=== PATIENT | female | born 1950 | race Caucasian/White ===

== ENCOUNTER 2021-06-05 12:47 | Inpatient (IN) ==
[2021-06-05] MEDS ORDERED: Naloxone 0.4 MG/ML INJ IVP PRN (15:07)
[2021-06-05] MEDS ORDERED: Acetaminophen 325 MG TABLET PO PRN (15:07)
[2021-06-05] MEDS ORDERED: Ondansetron 4 MG/2 ML VIAL IVP PRN (15:07)
[2021-06-05] MEDS ORDERED: Nitroglycerin 0.4 MG TAB.SUBL SL PRN (15:16)
[2021-06-05] MEDS ORDERED: *HR* Dextrose 50 % in Water (Syg) 50 ML SYRINGE IVP PRN (15:17)
[2021-06-05] MEDS ORDERED: D5% in Water 1,000 ML IVC PRN (15:17)
[2021-06-05] MEDS ORDERED: Dextrose Gel 15 GM/37.5 ML TUBE PO PRN ×2 (15:17)
[2021-06-05] MEDS: Ipratropium 1 PUFF INHALER IH SCH ×3 (15:45→23:52)
[2021-06-05] MEDS ORDERED: levoFLOXacin 750 MG/150 ML 750 MG/150 ML BAG IVPB SCH (16:00)
[2021-06-05] MEDS ORDERED: Ipratropium/Albuterol Neb 3 ML IH SCH (16:00)
[2021-06-05] MEDS: levoFLOXacin 750 MG/150 ML 750 MG/150 ML BAG IVPB SCH (16:05)
[2021-06-05 16:06] LABS: Alanine Aminotransferase 29 Units/L (7-52); Albumin 3.4 g/dL (3.5-5.7); Albumin/Globulin Ratio 1.2 (1.1-2.2); Alkaline Phosphatase 67 Units/L (34-104); Aspartate Amino Transferase 31 Units/L (13-39); BUN/Creatinine Ratio 36 (6-26); Bilirubin,Total 0.7 mg/dL (0.3-1.0); Blood Urea Nitrogen 30 mg/dL (8-23); Calcium 8.5 mg/dL (8.6-10.3); Carbon Dioxide 21 mEq/L (23-29); Chloride 104 mEq/L (98-107); Globulin 2.9 g/dL (2.4-3.5); Glucose 267 mg/dL (70-105); Osmolality,Calculated 302 (280-300); Potassium 3.1 mEq/L (3.5-5.1); Sodium 138 mEq/L (136-145); Total Protein 6.3 g/dL (6.4-8.9); eGFR For African Americans > 60 (> 60); eGFR For Non-African Americans > 60 (> 60)
[2021-06-05 16:50] LABS: Basophils % 0.3 %; Hemoglobin 13.4 g/dL (11.5-15.4); Immature Granulocytes % 0.5 % (0-4); Lymphocytes # 0.4 K/mcL (0.6-4.6); Lymphocytes % 7.6 %; Mean Corpuscular HGB Conc 34.4 g/dL (31.6-35.5); Mean Corpuscular Hemoglobin 30.4 pg (28.0-33.3); Mean Corpuscular Volume 88.4 fL (83.0-100.0); Mean Platelet Volume 11.2 fL (9.4-12.4); Monocytes # 0.3 K/mcL (0.0-1.3); Monocytes % 4.3 %; Neutrophils # 5.1 K/mcL (1.6-8.9); Platelet Count 236 K/mcL (140-400); Red Blood Count 4.41 M/mcL (3.82-4.97); Red Cell Distribution Width 12.9 % (11.5-14.5); Segmented Neutrophils % 87.3 %; White Blood Count 5.8 K/mcL (4.3-11.1)
[2021-06-05] MEDS ORDERED: Isovue-370 500 ML BOTTLE IVP ONE (16:57)
[2021-06-05] MEDS: Cranberry 500 MG Capsule PO SCH (18:05)
[2021-06-05] MEDS: Insulin LISPRO 300 UNITS/3 ML VIAL SUBQ SCH (18:06)
[2021-06-05 19:58] LABS: Adenovirus Not Detected (Not Detect); Bordetella Pertussis Not Detected (Not Detect); Chlamydophila pneumoniae Not Detected (Not Detect); Coronavirus 229E Not Detected (Not Detect); Coronavirus HKU1 Not Detected (Not Detect); Coronavirus NL63 Not Detected (Not Detect); Coronavirus OC43 Not Detected (Not Detect); Human Metapneumovirus Not Detected (Not Detect); Human Rhinovirus/Enterovirus Not Detected (Not Detect); Influenza A Subtype 2009 H1 Not Detected (Not Detect); Influenza B Not Detected (Not Detect); Mycoplasma pneumoniae Not Detected (Not Detect); Parainfluenza Virus 1 Not Detected (Not Detect); Parainfluenza Virus 2 Not Detected (Not Detect); Parainfluenza Virus 3 Not Detected (Not Detect); Parainfluenza Virus 4 Not Detected (Not Detect); Respiratory Syncytial Virus Not Detected (Not Detect)
[2021-06-05 20:02] LABS: SARS-CoV-2 DETECTED (Not Detect)
[2021-06-05] MEDS ORDERED: Insulin LISPRO 300 UNITS/3 ML VIAL SUBQ SCH (21:00)
[2021-06-05 21:33] LABS: C-Reactive Protein 36 mg/L (Less than 10); Ferritin 478 ng/mL (10-120)
[2021-06-05] MEDS: Apixaban 5 MG TABLET PO SCH (22:18)
[2021-06-05] MEDS: Insulin DETEMIR 100 UNIT/ML X5UNITS SUBQ SCH (22:19)
[2021-06-06 03:30] LABS: Hematocrit 39.9 % (35.3-44.9); Hemoglobin 13.6 g/dL (11.5-15.4); Mean Corpuscular HGB Conc 34.1 g/dL (31.6-35.5); Mean Corpuscular Hemoglobin 30.4 pg (28.0-33.3); Mean Corpuscular Volume 89.3 fL (83.0-100.0); Mean Platelet Volume 10.9 fL (9.4-12.4); Platelet Count 244 K/mcL (140-400); Red Blood Count 4.47 M/mcL (3.82-4.97); Red Cell Distribution Width 12.9 % (11.5-14.5); White Blood Count 5.6 K/mcL (4.3-11.1)
[2021-06-06 03:46] LABS: Alanine Aminotransferase 37 Units/L (7-52); Albumin 3.4 g/dL (3.5-5.7); Albumin/Globulin Ratio 1.2 (1.1-2.2); Alkaline Phosphatase 71 Units/L (34-104); Aspartate Amino Transferase 47 Units/L (13-39); BUN/Creatinine Ratio 35 (6-26); Bilirubin,Total 0.7 mg/dL (0.3-1.0); Blood Urea Nitrogen 35 mg/dL (8-23); Calcium 8.7 mg/dL (8.6-10.3); Carbon Dioxide 23 mEq/L (23-29); Chloride 102 mEq/L (98-107); Glucose 179 mg/dL (70-105); Osmolality,Calculated 296 (280-300); Potassium 3.6 mEq/L (3.5-5.1); Sodium 137 mEq/L (136-145); Total Protein 6.2 g/dL (6.4-8.9); eGFR For African Americans > 60 (> 60); eGFR For Non-African Americans 54 (> 60)
[2021-06-06 03:47] LABS: Globulin 2.8 g/dL (2.4-3.5)
[2021-06-06 03:59] LABS: Albumin 3.4 g/dL (3.5-5.7); Albumin/Globulin Ratio 1.2 (1.1-2.2); Bilirubin,Direct 0.2 mg/dL (0.0-0.2); Bilirubin,Indirect 0.5 mg/dL (0.0-1.0); Bilirubin,Total 0.7 mg/dL (0.3-1.0); Globulin 2.8 g/dL (2.4-3.5); Total Protein 6.2 g/dL (6.4-8.9)
[2021-06-06] MEDS: Ipratropium 1 PUFF INHALER IH SCH ×3 (04:09→11:17)
[2021-06-06] MEDS: Apixaban 5 MG TABLET PO SCH (08:35)
[2021-06-06] MEDS: levoFLOXacin 750 MG/150 ML 750 MG/150 ML BAG IVPB SCH (08:36)
[2021-06-06] MEDS: Cranberry 500 MG Capsule PO SCH ×2 (08:45→13:53)
[2021-06-06] MEDS: Insulin LISPRO 300 UNITS/3 ML VIAL SUBQ SCH ×2 (08:46→12:26)
[2021-06-06] MEDS: Insulin DETEMIR 100 UNIT/ML X5UNITS SUBQ SCH (08:47)
[2021-06-06] MEDS ORDERED: Remdesivir 200 MG in 0.9 % Sodium Chloride 100 ML IVPB ONE (09:00)
[2021-06-06] MEDS ORDERED: Aspirin Enteric Coated 81 MG Tablet PO SCH (09:00)
[2021-06-06] MEDS ORDERED: Multivit/Ca/Min/Fe/FA 1 TAB TABLET PO SCH (09:00)
[2021-06-06] MEDS ORDERED: Dexamethasone Sodium Phos/PF 10 MG/ML VIAL IVP SCH (09:00)
[2021-06-06] MEDS ORDERED: Furosemide 40 MG/4 ML VIAL IVP ONE (11:59)
[2021-06-06 12:13] LABS: VBG HCO3 21 mEq/L (21-27); VBG PCO2 35 mmHg (41-51); VBG PH 7.38 pH Units (7.32-7.42); VBG PO2 51 mmHg (25-50)
[2021-06-06 13:35] VITALS: RESP 22; TEMP 99
[2021-06-06 14:06] VITALS: O2SAT 95
[2021-06-06 14:17] VITALS: BP 120/80; PULSE 110
[2021-06-07] MEDS ORDERED: Remdesivir 100 MG in 0.9 % Sodium Chloride 100 ML IVPB SCH (09:00)
== END 2021-06-06 14:49 | disposition short-term general hospital (02) | DRG 871 ==
LOC: INPGRE
PROVIDERS: ADMIT Family Medicine; ATTEND Family Medicine

== ENCOUNTER 2022-01-15 14:49 | Observation (INO) ==
[2022-01-15] MEDS ORDERED: Naloxone 0.4 MG/ML INJ IVP PRN (18:04)
[2022-01-15] MEDS ORDERED: Acetaminophen 325 MG TABLET PO PRN (18:04)
[2022-01-15] MEDS ORDERED: Ondansetron 4 MG/2 ML VIAL IVP PRN (18:04)
[2022-01-15] MEDS ORDERED: Nitroglycerin 0.4 MG TAB.SUBL SL PRN (21:56)
[2022-01-15] MEDS ORDERED: Dextrose Gel 15 GM/37.5 ML TUBE PO PRN ×4 (21:57→21:58)
[2022-01-15] MEDS ORDERED: D5% in Water 1,000 ML IVC PRN ×2 (21:57→21:58)
[2022-01-15] MEDS ORDERED: *HR* Dextrose 50 % in Water (Syg) 50 ML SYRINGE IVP PRN ×2 (21:57→21:58)
[2022-01-15] MEDS ORDERED: Aspirin Enteric Coated 81 MG Tablet PO SCH (22:15)
[2022-01-15] MEDS: Psyllium 1 PACKET POWD.PACK PO SCH (23:03)
[2022-01-16 04:14] LABS: Hematocrit 32.8 % (35.3-44.9); Mean Corpuscular HGB Conc 33.5 g/dL (31.6-35.5); Mean Corpuscular Hemoglobin 30.8 pg (28.0-33.3); Mean Corpuscular Volume 91.9 fL (83.0-100.0); Platelet Count 182 K/mcL (140-400); Red Blood Count 3.57 M/mcL (3.82-4.97); Red Cell Distribution Width 13.7 % (11.5-14.5); White Blood Count 5.7 K/mcL (4.3-11.1)
[2022-01-16 04:20] LABS: INR 2.1; Prothrombin Time 23.6 Seconds (9.4-12.1)
[2022-01-16 04:31] LABS: BUN/Creatinine Ratio 22 (6-26); Blood Urea Nitrogen 19 mg/dL (8-23); Calcium 9.5 mg/dL (8.6-10.3); Carbon Dioxide 24 mEq/L (23-29); Chloride 107 mEq/L (98-107); Chol/HDL Ratio 2.6 (0-4.9); Cholesterol 115 mg/dL (< 200); Glucose 90 mg/dL (70-105); HDL Cholesterol 45 mg/dL (40-59); LDL Cholesterol,Calculated 53 mg/dL (< 100); Magnesium 1.4 mg/dL (1.6-2.6); Osmolality,Calculated 292 (280-300); Potassium 3.1 mEq/L (3.5-5.1); Sodium 140 mEq/L (136-145); Triglycerides 84 mg/dL (< 150); eGFR For African Americans > 60 (> 60); eGFR For Non-African Americans > 60 (> 60)
[2022-01-16 07:55] VITALS: BP 154/88; PULSE 65; RESP 17; TEMP 98.6; O2SAT 95
[2022-01-16] MEDS ORDERED: Loratadine 10 MG TABLET PO SCH (09:00)
[2022-01-16] MEDS ORDERED: (Cranberry 500 MG Capsule) PO SCH (09:00)
[2022-01-16] MEDS ORDERED: Cholecalciferol (D-3) 1,000 UNIT (25MCG) TABLET PO SCH (09:00)
[2022-01-16] MEDS ORDERED: Insulin DETEMIR 100 UNIT/ML X5UNITS SUBQ SCH (09:00)
[2022-01-16] MEDS ORDERED: Psyllium 1 PACKET POWD.PACK PO SCH (09:00)
[2022-01-16] MEDS ORDERED: Vitamin E 200 UNIT (90MG) CAPSULE PO SCH (09:00)
[2022-01-16 09:51] LABS: Estimated Average Glucose 120 mg/dl; Hemoglobin A1C 5.8 %
[2022-01-16] MEDS: Insulin LISPRO 300 UNITS/3 ML VIAL SUBQ SCH ×2 (10:38→13:48)
[2022-01-16] MEDS: Psyllium 1 PACKET POWD.PACK PO SCH (10:48)
[2022-01-16] MEDS: Regadenoson 0.4 MG/5 ML SYRINGE IVP ONE ×2 (10:49→12:49)
[2022-01-16] MEDS ORDERED: Warfarin perPT PO PRN (18:00)
[2022-01-16] MEDS ORDERED: *HR* Warfarin 4 MG TABLET PO ONE (18:00)
[2022-01-16] MEDS ORDERED: Aspirin Enteric Coated 81 MG Tablet PO SCH (21:00)
[2022-01-16] MEDS ORDERED: Insulin LISPRO 300 UNITS/3 ML VIAL SUBQ SCH (21:00)
== END 2022-01-16 14:48 | disposition home or self-care (01) ==
LOC: INPGRE
PROVIDERS: ADMIT Family Medicine; ATTEND Family Medicine